=== PATIENT | male | born 1980 | race Caucasian/White ===

== ENCOUNTER 2024-11-05 14:13 | Emergency (ER) | payer MEDICAID, SELFPAY ==
[2024-11-05 14:15] VITALS: BP 157/91; PULSE 77; RESP 16; TEMP 36.2; O2SAT 98; BMI 31.1
[2024-11-05] MEDS: Smz/Tmp Ds Tablet 1 TABLET PO (15:18)
--- NOTE | 2024-11-05 15:18 | EX.ED.GUMALE ---
HPI History of Present Illness Chief Complaint: Male Pain/Injury Narrative Narrative: 44-year-old male presents with swelling and indurated on an area on his scrotum underneath his testicles that he has had for a week. He states it started out as a small white dot on his scrotum. He states he squeezed the area and had a small amount of pus came out. Over the last week, underneath the area has grown in size. He states it hurts him when he walks. He denies any fevers or chills, no nausea or vomiting. He thinks the area may be more red. He denies any exacerbating or alleviating factors. No problems with urination, no testicular tenderness. No history of diabetes. [facility] Medical History Opioid dependence in remission Opioid dependence Home Medications Medication Instructions Recorded Last Taken Type cephalexin 500 mg capsule 500 mg PO TID #30 caps 11/05/24 Unknown Rx ibuprofen 800 mg tablet 800 mg PO Q8H PRN pain #20 tabs 11/05/24 Unknown Rx sulfamethoxazole 800 1 tab PO BID #20 tabs 11/05/24 Unknown Rx mg-trimethoprim 160 mg tablet (Bactrim DS) Allergy/AdvReac Type Severity Reaction Status Date / Time No Known Allergies Allergy Verified 11/05/24 14:14 Social History Smoking Status: Current every day smoker tobacco type: cigarettes ROS ROS ED ROS Narrative Review of systems positive for tender swollen area in midline of scrotum underneath testicles. No fevers or chills, no nausea or vomiting, hurts more when he walks or moves his legs. No dysuria. EXAM Physical Exam Narrative Exam Narrative: Afebrile. Vital signs noted. Nontoxic-appearing. Cardiovascular examination reveals regular rate and rhythm. Lungs are clear to auscultation bilaterally. Abdomen is soft and nontender without guarding or rebound. Positive bowel sounds. Neurological examination nonfocal, nonlateralizing. Chaperoned testicular examination shows no evidence of testicular tenderness. There is approximately 1 cm area of induration on the bottom of the scrotum/scrotal wall. No overlying erythema or crepitance. No fluctuance. Const Vital Signs: 07/24/25 14:15 Temperature 97.2 F L Temperature Source Temporal Pulse Rate 77 Respiratory Rate 16 Blood Pressure 157/91 H Blood Pressure Mean 113 Pulse Ox 98 Oxygen Delivery Method Room Air MDM MDM MDM Narrative Medical decision making narrative: Differential diagnosis includes but not limited to scrotal wall abscess versus Kit's gangrene versus infected hair follicle. Patient is not diabetic, and there is no crepitance, so I doubt Kit's gangrene. This is a localized area. Through shared decision making, I do not feel that incision and drainage is indicated on this small area as it seems to be more of an infected hair follicle. Patient would like to try antibiotic therapy. He was still covered with Bactrim DS and cephalexin. Additionally he requested no narcotics because he is in recovery so is written a prescription for ibuprofen as well. He will follow-up with his primary care provider and he was also referred to urology. Strict return instructions were reviewed. Disposition is discharged home in stable condition. History & Record Review Discussion w/independent historian: Patient Discharge Plan Triage Chief Complaint: Male Pain/Injury ED Provider: Addison Patterson Dx/Rx/DC Orders Clinical Impression: Scrotal wall abscess, Folliculitis Instructions: ED Abscess Antibiotic Treatment Only, ED Folliculitis Prescriptions: New ibuprofen 800 mg tablet 800 mg PO Q8H PRN (Reason: pain) Qty: 20 0RF sulfamethoxazole-trimethoprim [Bactrim DS] 800-160 mg tablet 1 tab PO BID Qty: 20 0RF cephalexin 500 mg capsule 500 mg PO TID Qty: 30 0RF Stand Alone Forms: ED Work / School Excuse Primary Care Provider: [facility] Yoselyn Ariza Referrals: Km Gonzales MD [Med Staff - Active Staff] [facility] 3-5 Days if not improving Activity Restrictions/Additional Instructions: Warm compresses to area. Take antibiotics as directed. Follow-up with primary care or urology. Return with fever, increased swelling and pain, new or worsening symptoms. Print Language: [place] Disposition Disposition: Home, Self Care
[2024-11-05 15:20] VITALS: BP 139/86; PULSE 75; RESP 18; TEMP 36.4; O2SAT 97
== END 2024-11-05 15:29 | disposition home or self-care (01) ==
PROVIDERS: Emergency Provider Emergency Medicine; Visit Provider Emergency Medicine
DX: L02.214 Cutaneous abscess of groin (principal); L02.224 Furuncle of groin; F17.210 Nicotine dependence, cigarettes, uncomplicated
CPT/HCPCS: 99283